=== PATIENT | male | born 1940 | race Caucasian/White ===

== ENCOUNTER → 2017-10-05 | Outpatient (CLI) | payer MEDICARE | LOC: CFH 15:50 | PROVIDERS: ATTEND Nurse Practitioner Primary Care | DX: J84.10 Pulmonary fibrosis, unspecified (principal); Z95.1 Presence of aortocoronary bypass graft | CPT/HCPCS: 71020 ==

== ENCOUNTER 2018-12-25 18:21 | Emergency (ER) | payer MEDICARE ==
[~2018-12-25] VITALS: Ht 182.9 cm; Wt 105.0 kg
[2018-12-25] MEDS ORDERED: LEVO150T5 PO (18:42)
[2018-12-25] MEDS ORDERED: CLOP75TA52 PO (18:42)
[2018-12-25] MEDS ORDERED: SIMV20TA3 PO (18:42)
[2018-12-25] MEDS ORDERED: LOSA50TA14 PO (18:42)
[2018-12-25] MEDS ORDERED: BUDE10.2 INH (18:42)
[2018-12-25 18:57] LABS: BASOPHILS # (AUTO) 0.03 x10^3/uL (0-0.1); BASOPHILS % (AUTO) 0 % (0-1); EOSINOPHILS # (AUTO) 0.07 x10^3/uL (0-0.4); EOSINOPHILS % (AUTO) 1 % (1-7); LYMPHOCYTES # (AUTO) 1.57 x10^3/uL (1-3.4); LYMPHOCYTES % (AUTO) 22 % (22-44); MD NO; MEAN CORPUSCULAR HEMOGLOBIN 32.5 pg (27.5-34.5); MEAN CORPUSCULAR HGB CONC 34.2 g/dL (33.2-36.2); MEAN CORPUSCULAR VOLUME 94.9 fL (81-97); MEAN PLATELET VOLUME 7.8 fL (7.4-10.4); MONOCYTES # (AUTO) 0.41 x10^3/uL (0.2-0.8); MONOCYTES % (AUTO) 6 % (2-9); NEUTROPHILS # (AUTO) 5.08 x10^3/uL (1.8-6.8); NEUTROPHILS % (AUTO) 71 % (42-75); PLATELET COUNT 167 x10^3/uL (130-400); RED CELL DISTRIBUTION WIDTH 13.7 % (9.4-14.8)
--- NOTE | 2018-12-25 18:59 | NUR ---
BEDSIDE HANDOFF REPORT TO CHANDU REDDY AND CHANDU RÍOS.
--- NOTE | 2018-12-25 19:00 | NUR ---
REPORT RECEIVED FROM RASHARD SCHOFIELD.
[2018-12-25 19:06] LABS: INTERNATIONAL NORMALIZED RATIO 1.02 (0.93-1.1); PROTHROMBIN TIME 10.8 Seconds (9.6-11.5)
[2018-12-25 19:07] LABS: ALBUMIN 3.5 g/dL (3.4-5.0); ANION GAP 6 mmol/L (5-15); CALCIUM 7.9 mg/dL (8.5-10.1); CHLORIDE 111 mmol/L (98-107)
[2018-12-25 19:12] LABS: ALANINE AMINOTRANSFERASE 25 U/L (12-78); ALKALINE PHOSPHATASE 89 U/L (45-117); BILIRUBIN,TOTAL 0.5 mg/dL (0.2-1.0); CREATININE 1.36 mg/dL (0.7-1.3); TOTAL PROTEIN 6.5 g/dL (6.4-8.2); TROPONIN I < 0.015 ng/mL (0.000-0.045)
--- NOTE | 2018-12-25 19:53 | NUR ---
PT GIVEN APPLE JUICE AT THIS TIME. AWAITING DC NOW.
--- NOTE | 2018-12-25 20:06 | NUR ---
EDMD AT BEDSIDE TO EXPLAIN ALL RESULTS. AWAITING DC.
[2018-12-25 20:32] VITALS: BP 143/76
--- NOTE | 2018-12-25 20:34 | NUR ---
PT GIVEN DC INSTRUCTIONS. PT AMB TO DC WITH STEADY GAIT. NO ACUTE DISTRESS AT DC.
== END 2018-12-25 20:34 | disposition home or self-care (01) ==
LOC: ED 20:00
DX: R07.89 Other chest pain (principal); I10 Essential (primary) hypertension; Z95.1 Presence of aortocoronary bypass graft
CPT/HCPCS: 36415; 71045; 80053; 84484; 85025; 85610; 85730; 93005; 99284